=== PATIENT | male | born 1960 | race Caucasian/White ===

== ENCOUNTER 2024-11-21 07:42 | Day surgery (SDC) | payer MEDICARE, BC ==
[~2024-11-21 07:42] MED LIST: Sodium Chloride 0.9% 10 ML Syringe FLUSH PRN; Sodium Chloride 0.9% 10 ML Syringe FLUSH SCH
[2024-11-21] MEDS: Lactated Ringers 1,000 ML IV SCH (08:00)
[2024-11-21] MEDS: oxyCODONE ER 10 MG TAB.ER PO ONE (08:19)
[2024-11-21] MEDS: Pregabalin 25 MG Cap PO ONE (08:19)
[2024-11-21] MEDS: Acetaminophen 325 MG Tab PO ONE (08:19)
[2024-11-21] MEDS ORDERED: Midazolam 1 MG/ML 2 ML SDV ONE (08:23)
[2024-11-21] MEDS ORDERED: propofoL 500 MG/50 ML 50 ML ONE (08:23)
[2024-11-21] MEDS ORDERED: Ondansetron 4 MG/2 ML SDV ONE (08:23)
[2024-11-21] MEDS ORDERED: dexmedeTOMIDine HCl 200 MCG/2 ML SDV ONE (08:23)
[2024-11-21] MEDS ORDERED: Ropivacaine 0.5% 5 MG/ML 30 ML SDV ONE (08:24)
[2024-11-21] MEDS ORDERED: ceFAZolin 2 GM Vial ONE (09:54)
[2024-11-21] MEDS ORDERED: ePHEDrine 50 MG/ML SDV ONE (09:57)
[2024-11-21] MEDS ORDERED: Lactated Ringers 1,000 ML ONE (10:04)
[2024-11-21] MEDS ORDERED: HYDROmorphone 0.5 MG/0.5 ML Syringe IVPUSH PRN (10:40)
[2024-11-21] MEDS ORDERED: fentaNYL 100 MCG/2 ML SDV IVPUSH PRN (10:40)
[2024-11-21] MEDS ORDERED: Ketorolac 30 MG/ML SDV IVPUSH ONE (10:40)
[2024-11-21] MEDS ORDERED: Ondansetron 4 MG/2 ML SDV IVPUSH PRN (10:40)
[2024-11-21] MEDS ORDERED: Propofol 200 MG/20 ML SDV ONE (10:43)
[2024-11-21] MEDS: Morphine 8 MG, EPINEPHrine 0.3 MG, Cefuroxime 750 MG, Ketorolac 30 MG, Sodium Chloride ... PRN (11:05)
[2024-11-21] MEDS: VANCOmycin 1 GM SDV ONE (11:11)
[2024-11-21] MEDS: Tranexamic Acid 1,000 MG/10 ML Vial ONE (11:11)
[2024-11-21] MEDS: oxyCODONE 5 MG Tab PO PRN (13:21)
== END 2024-11-21 14:00 | disposition home or self-care (01) ==
LOC: JD.SDS 07:42
PROVIDERS: ATTEND Orthopaedic Surgery
DX: M17.11 Unilateral primary osteoarthritis, right knee (principal); I10 Essential (primary) hypertension; E11.9 Type 2 diabetes mellitus without complications; E78.00 Pure hypercholesterolemia, unspecified; L30.8 Other specified dermatitis; F17.210 Nicotine dependence, cigarettes, uncomplicated; Z79.899 Other long term (current) drug therapy
CPT/HCPCS: 01402; 64447; 73560-26-RT; 73560-RT; 97116-GP; 97162-GP; A9270-GY; C1713; C1776; J0171; J0690; J0697; J1885; J2250; J2272; J2405; J2704; J2795; J3490; J7120